=== PATIENT | female | born 1965 | race Caucasian/White ===

== ENCOUNTER 2018-08-24 09:59 | Emergency (ER) | payer SELFPAY ==
[2018-08-24 10:05] VITALS: BP 119/98
[2018-08-24] MEDS ORDERED: CLINDAMYCIN HCL 150 MG CAPSULE PO ONE (10:20)
[2018-08-24] MEDS ORDERED: NAPROXEN 250 MG TABLET PO ONE (10:22)
--- NOTE | 2018-08-24 10:24 | ER Document Report ---
ED General - General Chief Complaint: Mouth Problem Stated Complaint: MOUTH PAIN Time Seen by Provider: 08/24/18 10:15 Mode of Arrival: Ambulatory Information source: Patient, [facility] Records Notes: 53-year-old female with no reported past medical history presents with complaint of dental pain, loose front tooth. Patient states dental pain has been ongoing for several weeks. She states that her front tooth has been loose for several weeks as well. She denies any fever, chills, nausea, vomiting, difficulty swallowing, neck pain. She does report increased rhinorrhea and nasal congestion. TRAVEL OUTSIDE OF THE [place] IN LAST 30 DAYS: No - HPI Onset: Other Onset/Duration: Gradual, Persistent Quality of pain: Achy Severity: Mild Pain Level: 1 Associated symptoms: Sinus pain/drainage. denies: Chills, Productive cough, Fever, Nausea, Weakness Exacerbated by: Denies Relieved by: Denies Similar symptoms previously: Yes Recently seen / treated by doctor: No - Related Data Allergies/Adverse Reactions: amoxicillin [Amoxicillin] Allergy (Verified 08/24/18 10:00) codeine [Codeine] Allergy (Verified 08/24/18 10:00) cortisone [Cortisone] Allergy (Verified 08/24/18 10:00) Penicillins Allergy (Verified 08/24/18 10:00) Past Medical History - General Information source: Patient, [facility] Records - Social History Smoking Status: Current Every Day Smoker Cigarette use (# per day): Yes - 15 Smoking Education Provided: Yes - Smoking cessation counseling was provided for 4 minutes at the bedside Frequency of alcohol use: None Drug Abuse: None Lives with: Family Family History: Reviewed & Not Pertinent Patient has suicidal ideation: No Patient has homicidal ideation: No Psychiatric Medical History: Reports: Hx Anxiety Past Surgical History: Reports: Hx Section, Hx Cholecystectomy, Hx Orthopedic Surgery - Immunizations Immunizations up to date: Yes Hx Diphtheria, Pertussis, Tetanus Vaccination: Yes - 03/2014 Review of Systems - Review of Systems Notes: REVIEW OF SYSTEMS: CONSTITUTIONAL : Denies fever, chills, or sweats. Denies recent illness. Denies weight loss, recent hospitalizations. EENT: Denies visual changes, eye pain. Denies sore throat, oral lesions, difficulty swallowing. CARDIOVASCULAR: Denies chest pain. Denies palpitations. Denies lower extremity edema. RESPIRATORY: Denies cough. Denies shortness of breath, wheezing. GASTROINTESTINAL: Denies abdominal pain or distention. Denies nausea, vomiting , or diarrhea. Denies blood in vomitus, stools, or per rectum. Denies black, tarry stools. Denies constipation. GENITOURINARY: Denies difficulty urinating, painful urination, frequency, blood in urine, or vaginal discharge. MUSCULOSKELETAL: Denies back or neck pain or stiffness. Denies joint pain or swelling. SKIN: Denies rash, lesions or sores. HEMATOLOGIC : Denies easy bruising or bleeding. LYMPHATIC: Denies swollen glands. NEUROLOGICAL: Denies confusion or altered mental status. Denies loss of consciousness. Denies dizziness or lightheadedness. Denies headache. Denies weakness or paralysis. Denies problems difficulty with ambulation, slurred speech. Denies sensory loss, numbness, or tingling. Denies seizures. PSYCHIATRIC: Denies anxiety or stress. Denies depression, suicidal ideation, or homicidal ideation. Denies visual or auditory hallucinations. Physical Exam - Vital signs Vitals: Temp Pulse Resp BP Pulse Ox 97.6 F 81 18 119/98 H 98 08/24/18 10:04 08/24/18 10:04 08/24/18 10:04 08/24/18 10:04 08/24/18 10:04 - Notes Notes: PHYSICAL EXAMINATION: GENERAL: Well-appearing, well-nourished and in no acute distress. HEAD: Atraumatic, normocephalic. EYES: Pupils equal round and reactive to light, extraocular movements intact, conjunctiva are normal. ENT: Nares patent, oropharynx clear without exudates. Moist mucous membranes. Multiple dental caries, multiple missing teeth. #9 tooth loose with root exposure. #5 tooth tender with palpation but without associated abscess. No sublingual edema. No discoloration of the gums. NECK: Normal range of motion, supple without lymphadenopathy LUNGS: Breath sounds clear to auscultation bilaterally and equal. No wheezes rales or rhonchi. HEART: Regular rate and rhythm without murmurs ABDOMEN: Soft, nontender, nondistended abdomen. No guarding, no rebound. No masses appreciated. Female : deferred Musculoskeletal: Normal range of motion, no pitting or edema. No cyanosis. NEUROLOGICAL: Cranial nerves grossly intact. Normal speech, normal gait. Normal sensory, motor exams PSYCH: Normal mood, normal affect. SKIN: Warm, Dry, normal turgor, no rashes or lesions noted. Course - Re-evaluation Re-evalutation: 08/24/18 10:30 Presentation is most consistent with likely an infected tooth. Airway is patent. Vitals within normal limits. Patient is able swallow without any difficulty. There is no significant facial swelling. No evidence of Chapo angina, apical abscess, or airway obstruction. Patient will be started on antibiotics. I've instructed to follow-up with dentistry as earliest ability for definitive management. At this time will discharge with return precautions and follow-up recommendations. Verbal discharge instructions given a the bedside and opportunity for questions given. Medication warnings reviewed. Patient is in agreement with this plan and has verbalized understanding of return precautions and the need for primary care follow-up in the next 24-72 hours. Patient provided the opportunity to ask questions, and express concerns. Discharge instructions discussed. Patient is agreeable with discharge home. Return indications explained and discussed with the patient who displays understanding. Patient encouraged to return to the emergency department immediately with any concerns. Results were discussed with the patient at this point, after careful consideration I feel that that patient can be discharged from the emergency department, the patient was educated treatments and reasons to return to the emergency department based on their presumed diagnosis as noted above, they were advised to followup with a primary care physician in 2-3 days. Patient was agreeable to plan of care. Dictation on this chart was performed using voice recognition software and may result in unintended grammatical, spelling, syntax or errors. - Vital Signs Vital signs: Temp Pulse Resp BP Pulse Ox 97.6 F 81 18 119/98 H 98 08/24/18 10:04 08/24/18 10:04 08/24/18 10:04 08/24/18 10:04 08/24/18 10:04 Discharge - Discharge Clinical Impression: Pain, dental, Tooth loose, Dental caries Condition: Good Instructions: [facility], Clindamycin ([facility]), Dental Infection or Abscess ([facility]), Dental Injury ([facility]), Toothache ([facility]) Additional Instructions: You have been seen for dental pain. It is very important that you follow-up with a dentist for definitive care. Please return if you develop fever greater than 101, swelling in your face, vomiting, difficulty breathing or swallowing, or any other symptoms that are concerning to you. Follow up with your physician tomorrow for further care or return to the ED IMMEDIATELY if symptoms worsen or new concerns occur. If you cannot afford to follow up with your primary care physician a list of low cost clinics have been provided at the end of your discharge papers as well. Most prescribed medications have multiple side effects. The safest thing to do is when filling your prescription please speak to your pharmacist regarding possible interactions with your normal home medications and over the counter medications such as Ibuprofen, Tylenol, Benadryl.. If you experience any symptoms that cause you discomfort or concern you should discontinue the medication immediately and return to the emergency room or call your primary care physician. There are some dental clinics at reduced rate. However are not in town and require travel. In [place]: [facility] will be opening a free dental clinic. Phone: In [place]: 1.[facility] (60 miles away) [facility] and [facility] [phone] [email or web address] For appointments, call on Mondays between the hours of 9 AM and noon. 2. [facility] (60 miles) [address] [place] [facility] [phone] extension [phone] Prescriptions: Clindamycin HCl 300 mg PO TID 10 Days #30 capsule Naproxen 500 mg PO Q12H #20 tablet Forms: Smoking Cessation Education Referrals: TRICE CARABALLO DDS [ACTIVE STAFF] - Follow up as needed SHELLY DURANT DDS [NO LOCAL MD] - Follow up as needed DIANA CESPEDES DDS [NO LOCAL MD] - Follow up as needed ISABELLE GOLDSMITH DA [DENTAL CRYPTOANALYSIS TEACHER] - Follow up in 3-5 days
== END 2018-08-24 10:37 | disposition home or self-care (01) ==
LOC: ER 09:59
DX: K13.79 Other lesions of oral mucosa (principal); K02.9 Dental caries, unspecified; F17.210 Nicotine dependence, cigarettes, uncomplicated; Z88.0 Allergy status to penicillin; Z88.6 Allergy status to analgesic agent; Z90.49 Acquired absence of other specified parts of digestive tract
CPT/HCPCS: 99282; 99406

== ENCOUNTER 2019-01-05 12:48 | Emergency (ER) | payer SELFPAY ==
[2019-01-05 13:39] VITALS: BP 106/67
[2019-01-05] MEDS ORDERED: LIDOCAINE 2% VISCOUS SOLN 20 ML UDCUP PO ONE (15:10)
--- NOTE | 2019-01-05 15:12 | ER Document Report ---
HPI - HPI Patient complains to provider of: sinus infection Time Seen by Provider: 01/05/19 15:09 Pain Level: 3 Context: 53 female presents with chief complaint of sinus infection. She states that is been going on for 3 or 4 weeks. She also complains of additional right upper tooth pain. She states that she has had intermittent fever and chills, earache and sore throat, rhinorrhea, shortness of breath and chest pain, nausea, no diarrhea. Patient states that she needs an antibiotic. No other complaints. Patient is a smoker. - REPRODUCTIVE Reproductive: DENIES: : Past Medical History - Social History Smoking Status: Current Every Day Smoker Chew tobacco use (# tins/day): No Frequency of alcohol use: None Drug Abuse: None Family History: Reviewed & Not Pertinent Patient has suicidal ideation: No Patient has homicidal ideation: No Renal/ Medical History: Denies: Hx Peritoneal Dialysis Psychiatric Medical History: Reports: Hx Anxiety Past Surgical History: Reports: Hx Section, Hx Cholecystectomy, Hx Orthopedic Surgery - Immunizations Immunizations up to date: Yes Hx Diphtheria, Pertussis, Tetanus Vaccination: Yes - 03/2014 Vertical Provider Document - CONSTITUTIONAL Notes: PHYSICAL EXAMINATION: Reviewed vital signs and charting by RN GENERAL: Alert, interacts well. No acute distress. HEAD: Normocephalic, atraumatic. EYES: Pupils equal, round, and reactive to light. Extraocular movements intact. ENT: Oral mucosa moist, tongue midline. Teeth numbers 2, 3, and 4 broken with the roots exposed. Patient with poor dentition. No evidence of gingivitis or purulent discharge. NECK: Full range of motion. Supple. Trachea midline. LUNGS: Clear to auscultation bilaterally, no wheezes, rales, or rhonchi. No respiratory distress. HEART: Regular rate and rhythm. No murmur NEUROLOGICAL: Alert and oriented. Normal speech. PSYCH: Normal affect, normal mood. SKIN: Warm, dry, normal turgor. No rashes or lesions noted. - INFECTION CONTROL TRAVEL OUTSIDE OF THE [place] IN LAST 30 DAYS: No Course - Re-evaluation Re-evalutation: 01/05/19 15:18 Presentation is most consistent with broken teeth. Airway is patent. Vitals within normal limits. Patient is able swallow without any difficulty. There is no significant facial swelling. No evidence of Chapo angina, apical abscess, or airway obstruction. I've instructed to follow-up with dentistry as earliest ability for definitive management. At this time will discharge with return precautions and follow-up recommendations. Verbal discharge instructions given a the bedside and opportunity for questions given. Medication warnings reviewed. Patient is in agreement with this plan and has verbalized understanding of return precautions and the need for primary care follow-up in the next 24-72 hours. - Vital Signs Vital signs: Temp Pulse Resp BP Pulse Ox 98.3 F 63 18 106/67 98 01/05/19 13:38 01/05/19 13:38 01/05/19 13:38 01/05/19 13:38 01/05/19 13:38 Discharge - Discharge Clinical Impression: Tooth pain Condition: Good Disposition: HOME, SELF-CARE Instructions: [facility], Toothache ([facility]) Additional Instructions: You have been seen for dental pain. It is very important that you follow-up with a dentist for definitive care. I have given you the information for the [facility] in the [facility]. Please return if you develop fever greater than 101, swelling in your face, vomiting, difficulty breathing or swallowing, or any other symptoms that are concerning to you. For pain you should take ibuprofen 600 mg every 6 hours as needed.
== END 2019-01-05 15:17 | disposition home or self-care (01) ==
LOC: ER 12:48
DX: K08.9 Disorder of teeth and supporting structures, unspecified (principal); F17.200 Nicotine dependence, unspecified, uncomplicated; Z90.49 Acquired absence of other specified parts of digestive tract
CPT/HCPCS: 99283; J3490

== ENCOUNTER 2019-03-16 07:24 | Emergency (ER) | payer SELFPAY ==
[2019-03-16 08:16] LABS: BILIRUBIN,URINE NEGATIVE (NEGATIVE); GLUCOSE, URINE NEGATIVE (NEGATIVE); KETONES,URINE TRACE mg/dL (NEGATIVE); LEUKOCYTE ESTERASE,URINE NEGATIVE (NEGATIVE); NITRITE,URINE NEGATIVE (NEGATIVE); PROTEIN,URINE 100 mg/dL (NEGATIVE); URINE SPECIFIC GRAVITY 1.017; UROBILINOGEN,URINE NEGATIVE mg/dL (<2.0)
[2019-03-16 08:17] LABS: APPEARANCE,URINE CLOUDY; COLOR,URINE RED
[2019-03-16 08:57] LABS: ABSOLUTE EOSINOPHILS # (AUTO) 0.1 10^3/uL (0.0-0.6); ABSOLUTE LYMPHOCYTES (AUTO) 0.9 10^3/uL (0.5-4.7); ABSOLUTE MONOCYTES (AUTO) 0.4 10^3/uL (0.1-1.4); ABSOLUTE NEUT (AUTO) 7.2 10^3/uL (1.7-8.2); BASOPHILS % (AUTO) 0.3 % (0-2); EOSINOPHILS % (AUTO) 1.2 % (0-6); HEMATOCRIT 38.9 % (36.0-47.0); HEMOGLOBIN 13.2 g/dL (12.0-15.5); LYMPHOCYTES % (AUTO) 10.3 % (13-45); MEAN CORPUSCULAR HEMOGLOBIN 29.7 pg (27.0-33.4); MEAN CORPUSCULAR HGB CONC 33.9 g/dL (32.0-36.0); MEAN CORPUSCULAR VOLUME 88 fl (80-97); MONOCYTES % (AUTO) 4.8 % (3-13); PLATELET COUNT 241 10^3/uL (150-450); RED BLOOD COUNT 4.44 10^6/uL (3.72-5.28); RED CELL DISTRIBUTION WIDTH 13.7 % (11.5-14.0); SEGMENTED NEUTROPHILS % (AUTO) 83.4 % (42-78); TOTAL CELLS COUNTED % (AUTO) 100 %; WHITE BLOOD COUNT 8.7 10^3/uL (4.0-10.5)
[2019-03-16 09:08] LABS: ALANINE AMINOTRANSFERASE 24 U/L (9-52); ALBUMIN 4.1 g/dL (3.5-5.0); ALKALINE PHOSPHATASE 94 U/L (38-126); ANION GAP 9 (5-19); ASPARTATE AMINO TRANSFERASE 24 U/L (14-36); BILIRUBIN,DIRECT 0.3 mg/dL (0.0-0.4); BILIRUBIN,TOTAL 0.6 mg/dL (0.2-1.3); BLOOD UREA NITROGEN 18 mg/dL (7-20); CALCIUM 9.5 mg/dL (8.4-10.2); CARBON DIOXIDE 28 mmol/L (22-30); CHLORIDE 104 mmol/L (98-107); GLUCOSE 88 mg/dL (75-110); POTASSIUM 3.8 mmol/L (3.6-5.0); SODIUM 140.8 mmol/L (137-145)
[2019-03-16] MEDS ORDERED: KETOROLAC TROMETHAMINE INJ/PF 30 MG/1 ML SDV IV ONE (09:44)
--- NOTE | 2019-03-16 11:13 | RADIOLOGY REPORT (SQ) ---
EXAM DESCRIPTION: CT ABD/PELVIS NO ORAL OR IV COMPLETED DATE/TIME: 03/16/2019 10:56 am REASON FOR STUDY: LLQ pain, hematuria, r/o stone COMPARISON: None. TECHNIQUE: CT scan of the abdomen and pelvis performed without intravenous or oral contrast. Images reviewed with lung, soft tissue, and bone windows. Reconstructed coronal and sagittal MPR images revi ewed. All images stored on PACS. All CT scanners at this facility use dose modulation, iterative reconstruction, and/or weight based d osing when appropriate to reduce radiation dose to as low as reasonably achievable (ALARA). [facility]: Dose Right [facility]: CareDose [facility]: Dose Right [facility]: Teradose 4D [facility]: Smart [employer] RADIATION DOSE: CT Rad equipment meets quality standard of care and radiation dose reduction techniq ues were employed. CTDIvol: 4.8 mGy. DLP: 251 mGy-cm.mGy. LIMITATIONS: None. FINDINGS: LOWER CHEST: Small pericardial effusion. Left coronary artery calcifications. NON-CONTRASTED LIVER, SPLEEN, ADRENALS: Evaluation limited by lack of IV contrast. No identified sign ificant masses. PANCREAS: No masses. No peripancreatic inflammatory changes. GALLBLADDER: Surgically absent. RIGHT KIDNEY AND URETER: No suspicious masses. Assessment limited by lack of IV contrast. There are multiple calcifications of the right renal parenchyma which are not definitely collecting system reid culi. No hydronephrosis or hydroureter. LEFT KIDNEY AND URETER: No suspicious masses. Assessment limited by lack of IV contrast. There is a 5 mm obstructive calculus of the proximal left ureter with mild left hydronephrosis and hydroureter. Multiple additional calcifications of the left renal parenchyma which are not definitely collecting system calculi. AORTA AND RETROPERITONEUM: No aneurysm. No retroperitoneal masses or adenopathy. BOWEL AND PERITONEAL CAVITY: No obvious masses or inflammatory changes. No free fluid. APPENDIX: Normal. PELVIS, BLADDER, AND ABDOMINAL WALL:No abnormal masses. No free fluid. Bladder normal. BONES: No significant findings. OTHER: No other significant finding. IMPRESSION: 1. There is a 5 mm obstructive calculus of the proximal left ureter with mild left hydr onephrosis and hydroureter. 2. Additional bilateral parenchymal calcifications which are not definitely nonobstructive collectin g system calculi. 3. Incidental note of a pericardial effusion. COMMENT: Quality ID # [id number]: Final reports with documentation of one or more dose reduction techniques (e.g., Automated exposure control, adjustment of the mA and/or kV according to patient size, use of iterative reconstruction technique) TECHNICAL DOCUMENTATION: JOB ID: [id number] [employer]- All Rights Reserved Reading location - IP/workstation name: [id number]
[2019-03-16] MEDS ORDERED: TAMSULOSIN HCL 0.4 MG CAP.SR.24H PO ONE (11:32)
--- NOTE | 2019-03-16 11:52 | ER Document Report ---
ED General - General Chief Complaint: Flank Pain Stated Complaint: FLANK PAIN Time Seen by Provider: 03/16/19 08:57 TRAVEL OUTSIDE OF THE [place] IN LAST 30 DAYS: No - HPI Notes: Patient is a 53-year-old female who presents emergency department for evaluation of left flank pain. She states is been intermittent over the last several weeks. It became more constant over the last 24 hours. She has had inte rmittent hematuria, gross hematuria today she states. No fevers. She has had some nausea but no emesis. Normal bowel movements. No vaginal discharge. - Related Data Allergies/Adverse Reactions: amoxicillin [Amoxicillin] Allergy (Verified 03/16/19 07:31) codeine [Codeine] Allergy (Verified 03/16/19 07:31) cortisone [Cortisone] Allergy (Verified 03/16/19 07:31) Penicillins Allergy (Verified 03/16/19 07:31) Past Medical History - General Information source: Patient - Social History Smoking Status: Current Every Day Smoker Family History: Reviewed & Not Pertinent Patient has suicidal ideation: No Patient has homicidal ideation: No Renal/ Medical History: Denies: Hx Peritoneal Dialysis Psychiatric Medical History: Reports: Hx Anxiety Past Surgical History: Reports: Hx Section, Hx Cholecystectomy, Hx Orthopedic Surgery - Immunizations Immunizations up to date: Yes Hx Diphtheria, Pertussis, Tetanus Vaccination: Yes - 03/2014 Review of Systems - Review of Systems Constitutional: No symptoms reported EENT: No symptoms reported Cardiovascular: No symptoms reported Respiratory: No symptoms reported Gastrointestinal: See HPI Genitourinary: See HPI Female Genitourinary: No symptoms reported Musculoskeletal: No symptoms reported Skin: No symptoms reported Neurological/Psychological: No symptoms reported Physical Exam - Vital signs Vitals: Temp Pulse Resp BP Pulse Ox 97.5 F 62 18 111/58 L 96 03/16/19 07:30 03/16/19 07:30 03/16/19 07:30 03/16/19 07:30 03/16/19 07:30 - Notes Notes: Vital signs reviewed, please refer to chart. Patient is normocephalic, atraumatic. Pupils equal round, reactive to light. Neck is supple without meningismus. Heart is regular rate and rhythm. Lungs are clear to auscultation bilaterally. Abdomen is soft, minimal left upper and lower quadrant tenderness to palpation, normoactive bowel sounds throughout. Extremities without cyanosis, clubbing, edema. Peripheral pulses are equal. Skin is warm and dry. Patient is awake, alert, neurological exam is nonfocal. Course - Re-evaluation Re-evalutation: 03/16/19 11:49 Patient presents to the emergency department for evaluation of left flank pain. She has large blood in her urine. Her laboratory investigations are otherwise unremarkable. CT scan reveals a 5 mm stone on the left. Patient is feeling somewhat improved. I did discuss the finding of pericardial effusion. It is small and incidental. She has no chest pain. I explained to her the importance of follow-up in regards to this. She states she is expecting her insurance to kick in from her new employment, and will seek out a new primary care physician. She is told that if she develops vomiting, chest pain, or any other new or concerning symptoms, she needs to return immediately to the emergency department for evaluation. She voiced understanding to this and was discharged. - Vital Signs Vital signs: Temp Pulse Resp BP Pulse Ox 97.5 F 62 18 111/58 L 96 03/16/19 07:30 03/16/19 07:30 03/16/19 07:30 03/16/19 07:30 03/16/19 07:30 - Laboratory Result Diagrams: 03/16/19 08:18 03/16/19 08:18 Laboratory results interpreted by me: 03/16/19 03/16/19 07:30 08:18 Seg Neutrophils % 83.4 H Lymphocytes % 10.3 L Urine Protein 100 H Urine Ketones TRACE H Urine Blood LARGE H - Diagnostic Test Radiology reviewed: Reports reviewed - 5 mm left ureterolithiasis, pericardial effusion Discharge - Discharge Clinical Impression: Ureterolithiasis, Pericardial effusion Condition: Stable Disposition: HOME, SELF-CARE Instructions: Kidney Stone ([facility]) Additional Instructions: Take medications as prescribed. Watch for dizziness, particularly when standing, with the Flomax. Watch for drowsiness, constipation with the pain medication. There was a small amount of fluid noted in the sac around your heart. This needs to be followed up as well. If you develop chest pain, difficulty breathing, vomiting, or any other new or concerning symptoms, return immediately to the emergency department for reevaluation.
[2019-03-16 11:56] VITALS: BP 121/62
== END 2019-03-16 11:56 | disposition home or self-care (01) ==
LOC: ER 07:24
DX: N20.1 Calculus of ureter (principal); I31.3 Pericardial effusion (noninflammatory); R10.9 Unspecified abdominal pain; R31.9 Hematuria, unspecified; F17.200 Nicotine dependence, unspecified, uncomplicated
CPT/HCPCS: 99284; 96374; 36415; 87086; 83690; 85025; 80053; 81001; 74176; J1885